=== PATIENT | male | born 1980 | race Caucasian/White ===

== ENCOUNTER 2021-12-12 11:57 | Emergency (ER) | payer BC, OTHER ==
[2021-12-12] MEDS ORDERED: Lidocaine 1% 30 ML SDV INJECT ONE (12:12)
[2021-12-12] MEDS ORDERED: Bacitracin Oint 1 GM U/D Packet TOP ONE (12:51)
== END 2021-12-12 13:09 | disposition home or self-care (01) ==
LOC: DL.ED 11:57
DX: S61.211A Laceration without foreign body of left index finger without damage to nail, initial encounter (principal); W26.0XXA Contact with knife, initial encounter
CPT/HCPCS: 12002; 99282; 99282-25